=== PATIENT | female | born 1930 | race African-American/Black ===

== ENCOUNTER 2016-12-29 11:13 | Inpatient (IN) ==
[~2016-12-29 11:13] MED LIST: ACETAMINOPHEN 325 MG TABLET PO PRN; ALBUTEROL/IPRATROPIUM 3 ML NEB RESP TX PRN
--- NOTE | 2016-12-29 11:57 | Pulmonology History & Physical ---
History of Present Illness Chief complaint: left lower lung pneumonia, outpt tx failure, hypoxemia History of present illness: LARISA Morgan, acting as scribe for Dr. Santana Rodas. Mrs. Garcia is an 86 year old female from [place], [place]. She was seen by me in the clinic today 12/29/16 for complaints of cough, wheeze, sore throat, severe shortness of breath with exertion, and frequent chills/ sweating that has been acutely worse for about 7-10 days. She was previously treated with Prednisone and Ceftin for upper respiratory infection and sinusitis with instructions to RTC if no improvement. She has completed these medications and her symptoms have not improved, but have become acutely worse so she presented back to the clinic today for further evaluation. On exam she was found to have a temperature of 99.2 oral along with o2 sat down to 84% with exertion. She has been using medications as prescribed including Symbicort and Incruse inhalers, breathing treatments, finishing prednisone, and Singulair. She was very anxious and tearful in the office today and acutely ill appearing. CXR was done which revealed findings of an acute left lower lobe infiltrate compatible with pneumonia. CBC showed anemia along with a left shift. Due to the severity of her symptoms and findings on CXR and lab, failure of outpatient treatment, and her past medical history decision was made to admit to inpatient for further evaluation and treatment. She report increased shortness of breath with a productive cough of discolored sputum, wheezing, dyspnea on exertion, chills, and fatigue. She denies any cardiac angina or palpitations. There is no reported dysphagia or reflux. No bleeding from any site. No TIA symptoms or syncope. No change in bowel or bladder habits. All other systems were reviewed and were negative. Allergies: NO KNOWN DRUG ALLERGIES Medications: See list. She takes a yearly flu shot. Pneumovax was given in 2008. Past medical history: [facility] hospitalization 10/11/15-06/05/16 under the care of Dr. Rodas for acute bronchitis with bronchospasm refractory to outpatient treatment and acute bibasilar pneumonia. [facility] hospitalization 05/2015 under the care of Dr. Rodas for an acute LLL infiltrate compatible with pnneumonia. COPD. Asthma. Trace of mitral regurgitation. DJD. High blood pressure. Diverticulosis. GERD. Hx of bilateral knee effusions secondary to DJD. Chronic lower extremity venous stasis. Chronic allergic sinusitis. Previous echocardiogram evidence of diastolic dysfunction. Hyperlipidemia. Social history: The patient denies alcohol and tobacco use. She is . She has a 6th grade education. 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 Family history: Positive for asthma. Past procedures: Bone density study done 03/04/06 were normal. Pulmonary function tests 04/16/11 showed (1) normal pulse oximetry 98%, (2) mild obstructive lung disease, (3) hyperinflation with a functional residual capacity of 173%of predicted and residual volume of 179% of predicted, (4) no restrictive disease, (5) no diffusion defect, (6) moderate decrease in MVV, and (7) these pulmonary function tests were were the best tests the patient had had since 10/06/06. CBC/BMP done in the clinic have been reviewed. WBC 9800 with an early left shift 71.6% segs, H&H 10.6/33.0 with a low MCH at 27.7 and a normal RDW of 14.6% , Platelets 274,000. Glucose 114. BUN/Creatinine 14/0.93 Calcium 8.3 Sodium 139 Potassium 3.5. CXR done in the clinic reviewed by Dr. Rodas. Noted to have an acute left lower lung infiltrate compatible with pneumonia. EKG is pending. Home Medications Medication Instructions Recorded Confirmed Type Aspirin EC Tab 81 mg PO DAILY 05/24/15 12/29/16 History Bimatoprost 0.01% Oph Soln 1 drop BOTH EYES BEDTIME 05/24/15 12/29/16 History [Lumigan] Budesonide/Formoterol 80-4.5 2 puff INH BID 05/24/15 12/29/16 History [Symbicort 80-4.5] Furosemide Tab [Lasix Tab] 40 mg PO DAILY 05/24/15 12/29/16 History Omeprazole [Prilosec] 40 mg PO DAILY 05/24/15 12/29/16 History Potassium Chloride Cap/Tab [K Dur] 20 meq PO DAILY 05/24/15 12/29/16 History hydrALAZINE TAB [Apresoline Tab] 25 mg PO BID 05/24/15 12/29/16 History Benzonatate [Tessalon] 200 mg PO TID PRN #60 capsule 05/31/15 12/29/16 Rx Cholecalciferol (Vitamin D3) 5,000 units PO DAILY 05/26/16 12/29/16 History [Vitamin D3] Montelukast Tab [Singulair Tab] 10 mg PO DAILY 05/26/16 12/29/16 History predniSONE TAB [PredniSONE] 10 mg PO BID 05/26/16 12/29/16 History Azelastine Nasal 137 Mcg/Denniston 2 sprays BOTH NARES BID 12/29/16 12/29/16 History [Astelin Nasal Denniston] Umeclidinium Vernon [Incruse 2 puff INH BID 12/29/16 12/29/16 History Ellipta] Allergies Allergy/AdvReac Type Severity Reaction Status Date / Time No Known Allergies Allergy Verified 05/24/15 13:06 Medical,Surgical,& Family Hx - Medical History Cardio: History of: Hypertension Respiratory: History of: Asthma, COPD Gastrointestinal: History of: GERD Musculoskeletal: History of: Degenerative Disk Disease - Social History Smoking Status: Never smoker Quality Measures - Stroke Symptom Onset Unknown: No Exam (Pulmonay) H&P - Constitutional Vitals: Ht. 65in Wt. 197lbs Temp 99.2 HR 83 RR 18 BP 137/93 O2 sat 94% on room air resting Exam: Psychiatric: Awake alert and oriented x 3, a pleasant patient who is acutely ill -appearing, but anxious and tearful. HEENT: Pupils, irises, sclera, conjunctiva and eyelids are normal. Face is symmetrical. Nares reveal edematous and erythematous turbinates bilaterally. Lips, tongue, buccal mucosa, soft and hard palate and pharynx are normal. External ears are normal. Neck is symmetrical without masses. The thyroid was not palpated. Lymphatics: No submandibular, cervical, or supraclavicular adenopathy Chest: Symmetrical with significant LAW wheeze with bibasilar congestion noted worse in the left basilar area. I do not hear any high pitched end expiratory wheezing. Cough during deep breathing noted. Cardiovascular: Regular with a slightly lateral PMI and a grade 1/6 FARA at the left sternal border that does not radiate. Arterial: Carotids are decreased. There was no bruit. Upper extremity pulses are palpable. Lower extremity pulses are nonpalpable. I see no evidence of ischemia. Venous: Venous exam of the neck and upper extremities is normal. Lower extremities reveal chronic venous stasis changes with 1-2+ pretibial edema. Breasts: Deferred Abdomen: Nontender and nondistended. No appreciable organomegaly, masses, tenderness, or bruit. The aorta was not palpated. Bowel sounds are positive 4. /Rectal: Deferred Skin: No cancers or infectious lesions of the exposed examined skin. The perineal area was not examined. No discoloration. Musculoskeletal: Mild loss of the normal curvature of the cervical, thoracic, and lumbar spine. Extremities: Trace bilateral pedal and pretibial edema.See VENOUS. There is no evidence of deep venous thrombophlebitis noted. Neurological: Cranial nerves appear to be intact with decreased hearing acuity bilaterally. Long tract motor function is intact. Gait was not tested. Sensory exam was not done. The remainder of the exam is noncontributory. Impression: #1: Acute left lower lung infiltrate compatible with pneumonia; sputum cultures and blood cultures are pending. 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 Plan: #1: Admit to inpatient for further evaluation and treatment #2: Start IV antiobiotics with Levaquin 500mg daily and Fortaz 1GM [id number] along with SoluMedrol 20mg IVP [id number]. #3: Check sputum for gram stain, culture and sensitivity along with blood cultures x3 before first dose of abx. #4: Check cold agglutinins and legionella #5: Inhalation therapy with Duonebs #6: Repeat labs and CXR in the morning #7: Consult Interventional Radiology for PICC line placement due to poor peripheral access. #8 ID and continue home medications. #9 See orders.
[2016-12-29] MEDS: methylPREDNISolone SOD SUC 40 MG/1 ML VIAL IV SCH (12:53)
--- NOTE | 2016-12-29 12:53 | EKG Report ---
Stationary ECG Study [facility] Test Date: 12/29/2016 12:52:43 PM Pat Name: FRIEDA GARCES Department: Room: 530 Gender: F Reinforcing Rod Layer: : 1930 Requested by: Kei Moreno Order Number: [id number] Reading MD: LEOPOLDO MORILLO Intervals [place] Rate: 85 P: 68 AL: 139 QRS: -56 QRSD: 134 T: 86 QT: 398 QTc: 440 Interpretive Statements (JOHNNIE RIVERA TO INTERP) SINUS RHYTHM WITH OCCASIONAL VENTRICULAR PREMATURE COMPLEXES RIGHT BUNDLE BRANCH BLOCK LEFT ANTERIOR FASCICULAR BLOCK LEFT VENTRICULAR HYPERTROPHY AND ST-T CHANGE Electronically Signed On 12-29-16 13:59:52 CDT by LEOPOLDO MORILLO [email or web address]
[2016-12-29 13:09] LABS: Magnesium 2.4 MG/DL (1.8-2.4); Thyroid Stimulating Hormone 0.611 uIU/ml (0.358-3.74)
[2016-12-29] MEDS: LEVOFLOXACIN INJ 500 MG in PREMIX 1 EACH IV SCH (14:05)
[2016-12-29] MEDS: ALBUTEROL/IPRATROPIUM 3 ML NEB RESP TX SCH ×2 (14:31→19:43)
--- NOTE | 2016-12-29 15:04 | Post Interventional Procedure ---
Pre-op diagnosis: Pneumonia Post-op diagnosis: same Procedure: PICC LUE Contrast: Omni-350, 5 cc Flouroscopy: 0.7 min Radiologist: Elton Perez Anesthesia: local Specimens: none sent Estimated blood loss: none Complications: none Condition: stable Assessment and Plan - Time spent with patient Time spent with patient: Less than 30 minutes
--- NOTE | 2016-12-29 15:15 | Interventional Radiology Rpt ---
IR PICC line insertion, US guide vascular access Indication: Pneumonia. PICC LINE, LEFT AXILLARY VENOGRAM Description: A formal timeout was performed. Maximum sterile barrier technique was used. Sonographic evaluation of the left upper extremity demonstrates patent and compressible basilar vein. The upper arm was prepped and draped in sterile fashion. 3 cc 1% lidocaine was administered subcutaneously. Under sonographic guidance, a micropuncture needle was advanced into the vein. A captured sonographic image documents the position of the needle. Needle was exchanged over a wire for a peel-away sheath. The wire would not pass further central of the axillary vein. Therefore, a venogram was performed of Omnipaque 350, 5 cc. This showed that the wire was preferentially tracking into 1 mm collateral vein. Under fluoroscopic guidance, the wire was then steered into the proper axillary vein until the tip of the wire was the RA-SVC junction. A dual lumen power PICC, cut to 44 cm, was advanced over the wire until the tip was at the RA-SVC junction. The position of the catheter was confirmed with fluoroscopic guidance and an image stored in PACS. The wire and sheath were removed. Both ports of the PICC were aspirated and flushed with heparinized saline. The device was secured with a StatLock. Fluoroscopy: 0.7 minutes. 3 captured images. Contrast: Omnipaque 350, 5 cc. Impression: PICC line ready for immediate use. Routine catheter care. PROCEDURE INTERPRETED AT [facility] DEPARTMENT OF RADIOLOGY Final Report Signed by: Elton Perez M.D.
[2016-12-29] MEDS: BENZONATATE 100 MG CAPSULE PO SCH ×2 (16:09→21:28)
[2016-12-29 20:33] LABS: Apearance,Urine CLEAR (Clear); Bilirubin,Urine Negative (Negative); Blood, Urine Negative (Negative); Glucose,Urine (UA) Negative (Negative); Ketones,Urine Negative (Negative); Mucus,Urine Occasional /LPF (Occasional); Nitrite,Urine Negative (Negative); Protein,Urine Negative; RBC,Urine 1 /HPF (0-4); Squamous Epithelial Cell,Urine Occasional /HPF (0-10); Transitional Epi Cells,Urine Occasional /HPF (<1); Urine Color Yellow (Yellow); Urine Specific Gravity 1.013 (1.001-1.035); Urine Urobilinogen < 2.0 EU/DL (0.2-1.0); WBC,Urine 5 /HPF (0-6)
[2016-12-29] MEDS: BUDESONIDE/FORMOTEROL 160-4.5 INHALER 6 GM INH SCH (21:26)
[2016-12-29] MEDS: AZELASTINE NASAL 137 MCG/SPRAY 30 ML BOTTLE BOTH NARES SCH (21:26)
[2016-12-29] MEDS: BIMATOPROST 0.01% OPH SOLN 2.5 ML BOTTLE BOTH EYES SCH (21:27)
[2016-12-29] MEDS: hydrALAZINE 25 MG TABLET PO SCH (21:28)
[2016-12-29] MEDS: MONTELUKAST 10 MG TABLET PO SCH (21:28)
[2016-12-29] MEDS: INCRUSE ELLIPTA INH SCH (21:29)
[2016-12-30] MEDS: methylPREDNISolone SOD SUC 40 MG/1 ML VIAL IV SCH ×2 (00:58→13:02)
[2016-12-30] MEDS: ALBUTEROL/IPRATROPIUM 3 ML NEB RESP TX SCH ×4 (07:00→19:36)
[2016-12-30 07:20] LABS: Basophils % 0.1 % (0.0-0.8); Hematocrit 31.5 VOL% (35.7-47.0); Hemoglobin 10.3 GM/DL (12.0-16.0); Immature Granulocytes % 0.6 %; Immature Granulocytes Absolute 0.04 #; Lymphocytes # 1.3 10*3/uL (1.4-4.0); Lymphocytes % 17.9 % (21.3-54.2); Mean Corpuscular HGB Conc 32.7 GM/DL (32-36); Mean Corpuscular Hemoglobin 28 PG (27-34); Mean Corpuscular Volume 85.4 FL (87-102); Mean Platelet Volume 11.2 FL (9.6-12.0); Monocytes # 0.3 10*3/uL (0.11-0.8); Monocytes % 3.6 % (1.7-12.7); Neutrophils # 5.6 10*3/uL (1.4-7.4); Neutrophils % 77.8 % (38.7-73.9); Platelet Count 277 T/CUMM (130-400); Red Blood Count 3.69 MC/CUMM (3.8-5.5); Red Cell Distribution Width 14.6 % (9.3-17.3); White Blood Count 7.1 T/CUMM (4-12)
[2016-12-30 07:42] LABS: Calcium 8.2 MG/DL (8.5-10.1); Potassium 4.3 MMOL/L (3.5-5.1)
[2016-12-30 07:45] LABS: Hypochromasia Slight; Lymphocytes 15 % (20-55); Platelet Estimate Adequate; Segmented Neutrophils 81 % (50-85); Total Cells Counted 100
--- NOTE | 2016-12-30 08:01 | XRay Report ---
Exam: XR chest 2V Indication: Shortness of breath Comparison study: Prior chest radiograph 06/05/2016 Findings: Left-sided PICC line is noted in position. The heart, mediastinum and bony structures are stable from prior. There are patchy airspace opacities within the lung bases, more prominent on the left which are similar to slightly increased from prior and therefore may represent areas of interstitial scarring and/or superimposed interstitial infiltrates. There is no pneumothorax or pleural effusion identified. Impression: Similar areas of airspace and interstitial opacities in the left lung base and medial right lung base which may represent atelectasis/scarring and/or superimposed interstitial infiltrates. PROCEDURE INTERPRETED AT [facility] DEPARTMENT OF RADIOLOGY Final Report Signed by: Faizan Gonzalez
[2016-12-30] MEDS: MONTELUKAST 10 MG TABLET PO SCH ×2 (09:50→21:58)
[2016-12-30] MEDS: POTASSIUM CHLORIDE 20 MEQ TABLET PO SCH (09:50)
[2016-12-30] MEDS: FUROSEMIDE 40 MG TABLET PO SCH (09:50)
[2016-12-30] MEDS: CHOLECALCIFEROL 1,000 UNIT TABLET PO SCH (09:50)
[2016-12-30] MEDS: ASPIRIN CHEW 81 MG TABLET PO SCH (09:50)
[2016-12-30] MEDS: BENZONATATE 100 MG CAPSULE PO SCH ×3 (09:50→21:58)
[2016-12-30] MEDS: hydrALAZINE 25 MG TABLET PO SCH ×2 (09:50→21:58)
[2016-12-30] MEDS: PANTOPRAZOLE 40 MG TABLET PO SCH (09:50)
[2016-12-30] MEDS: AZELASTINE NASAL 137 MCG/SPRAY 30 ML BOTTLE BOTH NARES SCH ×2 (09:51→21:57)
[2016-12-30] MEDS: BUDESONIDE/FORMOTEROL 160-4.5 INHALER 6 GM INH SCH ×2 (09:51→21:57)
[2016-12-30] MEDS: INCRUSE ELLIPTA INH SCH ×2 (10:12→21:58)
--- NOTE | 2016-12-30 10:54 | Pulmonology Progress Note ---
Pulmonary - PN: Subj Interval history: This is a 86-year-old black female admitted from my office on 12/29/2016. She was admitted with acute left lower lung pneumonia. She was significantly sick and she had significant dyspnea on exertion. She had a cough productive of discolored sputum. My impressions were. #1: Acute left lower lung infiltrate compatible with pneumonia; sputum cultures and blood cultures are pending. 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 12/30/2016. Today the patient feels better her chest x-ray shows some partial resolution of the left lower lung infiltrate. She is still breathless with getting up and going to the bathroom. White blood cell count is 7100 with 78 segs and 18 lymphs. H&H is 10.3/31.5 and platelets are 277,000. Urinalysis shows no evidence of infection. Electrolytes are normal. Creatinine is 0.70 with a BUN of 13. Thyroid function tests are normal. Nitrated peptide is 25. Magnesium is 2.4. Sputum Gram stain showed gram-positive cocci and gram- negative rods. Blood cultures are negative so far Physical exam. Vital signs. See below Psychiatric. Oriented 3 Neurologic. Cranial nerves are intact with some decreased hearing acuity bilaterally long track motor functions intact. Gait is slow but steady. Face. Symmetrical. No edema of the lips and tongue. Neck. Symmetrical. No meningismus. Lymphatics. No submandibular cervical supraclavicular or epitrochlear adenopathy. Chest. Large airway congestion especially on the left no chest wall tenderness. Heart. No gallop Abdomen obese. Nontender. Positive bowel sounds Lower extremities. Nothing to suggest deep venous thrombophlebitis. Venous. Neck and upper extremities are normal chronic venous stasis changes of the lower extremities. Arterial. Carotids are decreased and hard to palpate. Upper extremity pulses are palpable lower extremity pulses are nonpalpable. No evidence of lower extremity ischemia. The remainder the physical exam is negative. Plan: 12/29/2016 #1: Admit to inpatient for further evaluation and treatment #2: Start IV antiobiotics with Levaquin 500mg daily and Fortaz 1GM [id number] along with SoluMedrol 20mg IVP [id number]. #3: Check sputum for gram stain, culture and sensitivity along with blood cultures x3 before first dose of abx. #4: Check cold agglutinins and legionella #5: Inhalation therapy with Duonebs #6: Repeat labs and CXR in the morning #7: Consult Interventional Radiology for PICC line placement due to poor peripheral access. #8 ID and continue home medications. #9 See orders. 12/30/2016. 1. See today's note above 2. Continue problem spectrum antibiotic coverage. This was in outpatient treatment failure. Exam (Progress Note) - Constitutional Vitals: Period Temp Pulse Resp BP Sys/Gonzales Pulse Ox Last 24 Hr 97.2 F-99.6 F 56-87 16-20 116-142/55-93 94-100 Results - Labs CBC & BMP: 12/30/16 06:35 12/30/16 06:35
[2016-12-30] MEDS: LEVOFLOXACIN INJ 500 MG in PREMIX 1 EACH IV SCH (13:03)
[2016-12-30] MEDS: BIMATOPROST 0.01% OPH SOLN 2.5 ML BOTTLE BOTH EYES SCH (21:58)
[2016-12-31] MEDS: methylPREDNISolone SOD SUC 40 MG/1 ML VIAL IV SCH ×3 (00:30→23:35)
[2016-12-31 06:10] LABS: Basophils % 0.1 % (0.0-0.8); Eosinophils % 0.1 % (0.00-10.9); Hematocrit 31.9 VOL% (35.7-47.0); Hemoglobin 10.2 GM/DL (12.0-16.0); Immature Granulocytes % 0.6 %; Immature Granulocytes Absolute 0.06 #; Lymphocytes # 1.5 10*3/uL (1.4-4.0); Lymphocytes % 14.3 % (21.3-54.2); Mean Corpuscular Hemoglobin 27 PG (27-34); Mean Corpuscular Volume 85.5 FL (87-102); Mean Platelet Volume 11.1 FL (9.6-12.0); Monocytes # 0.5 10*3/uL (0.11-0.8); Monocytes % 4.7 % (1.7-12.7); Neutrophils # 8.4 10*3/uL (1.4-7.4); Neutrophils % 80.2 % (38.7-73.9); Platelet Count 325 T/CUMM (130-400); Red Blood Count 3.73 MC/CUMM (3.8-5.5); Red Cell Distribution Width 14.6 % (9.3-17.3); White Blood Count 10.5 T/CUMM (4-12)
[2016-12-31 06:31] LABS: Hypochromasia 1+
[2016-12-31 06:32] LABS: Microcytosis Slight; Platelet Estimate Normal
[2016-12-31 06:34] LABS: Calcium 8.7 MG/DL (8.5-10.1); Osmolality,Calculated 285.3 MOS/KG (273-304); Potassium 4.6 MMOL/L (3.5-5.1)
[2016-12-31] MEDS: ALBUTEROL/IPRATROPIUM 3 ML NEB RESP TX SCH ×4 (07:25→19:27)
--- NOTE | 2016-12-31 08:00 | XRay Report ---
Exam: XR chest 2V Date: 12/31/2016 4:00 AM Indication: Shortness of breath Comparison: 12/30/2016 Technical: PA lateral Findings: A left-sided PICC line is present. Cardiomegaly is present. Bibasilar infiltrates are present left greater than right involving the lower one fourth of the left chest with tiny effusion suspected bilaterally. Minimal sclerosis at the shoulders bilaterally. No pneumothorax. Impression: 1. Cardiomegaly 2. Bilateral basilar interstitial infiltrates and tiny effusions left greater than right unchanged from prior study 3. Stable appearance of PICC line 4. Arthritic change of the shoulders bilaterally PROCEDURE INTERPRETED AT [facility] DEPARTMENT OF RADIOLOGY Final Report Signed by: Dr. Santana Ribera
[2016-12-31] MEDS: CHOLECALCIFEROL 1,000 UNIT TABLET PO SCH (08:23)
[2016-12-31] MEDS: AZELASTINE NASAL 137 MCG/SPRAY 30 ML BOTTLE BOTH NARES SCH ×2 (08:24→20:52)
[2016-12-31] MEDS: ASPIRIN CHEW 81 MG TABLET PO SCH (08:24)
[2016-12-31] MEDS: INCRUSE ELLIPTA INH SCH ×2 (08:24→21:01)
[2016-12-31] MEDS: MONTELUKAST 10 MG TABLET PO SCH ×2 (08:24→20:50)
[2016-12-31] MEDS: POTASSIUM CHLORIDE 20 MEQ TABLET PO SCH (08:24)
[2016-12-31] MEDS: BENZONATATE 100 MG CAPSULE PO SCH ×3 (08:24→20:50)
[2016-12-31] MEDS: hydrALAZINE 25 MG TABLET PO SCH ×2 (08:24→20:50)
[2016-12-31] MEDS: FUROSEMIDE 40 MG TABLET PO SCH (08:24)
[2016-12-31] MEDS: BUDESONIDE/FORMOTEROL 160-4.5 INHALER 6 GM INH SCH ×2 (08:24→20:52)
[2016-12-31] MEDS: PANTOPRAZOLE 40 MG TABLET PO SCH (08:24)
--- NOTE | 2016-12-31 11:01 | Pulmonology Progress Note ---
Pulmonary - PN: Subj Interval history: Bradley Calabrese, [facility] acting as scribe for Dr. Santana Rodas This is a 86-year-old black female admitted from [facility] on 03/2017. She was admitted with acute left lower lung pneumonia. She was significantly sick and she had significant dyspnea on exertion. She had a cough productive of discolored sputum. At admission, our impressions were: #1: Acute left lower lung infiltrate compatible with pneumonia; sputum cultures and blood cultures are pending. 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 12/30/2016. Today the patient feels better her chest x-ray shows some partial resolution of the left lower lung infiltrate. She is still breathless with getting up and going to the bathroom. White blood cell count is 7100 with 78 segs and 18 lymphs. H&H is 10.3/31.5 and platelets are 277,000. Urinalysis shows no evidence of infection. Electrolytes are normal. Creatinine is 0.70 with a BUN of 13. Thyroid function tests are normal. Nitrated peptide is 25. Magnesium is 2.4. Sputum Gram stain showed gram-positive cocci and gram- negative rods. Blood cultures are negative so far 12/31/2016. The patient was sitting up in her bedside chair this morning. She continues to have significant cough with a little sputum production. On chest exam she has loose large airway congestion. We will start Pulmozyme twice daily. She is already on Mucinex, Singulair, and Solu-Medrol. She has Tessalon also. Cold agglutinins are positive at 1:128. We have started Zithromax. She is also on Levaquin and Fortaz. Sputum Gram stain showed gram- positive cocci and gram-negative rods. Sputum culture is growing a gram- negative natan, but final ID and sensitivity is pending. Chest x-ray today shows the previously noted infiltrate is improving. Medications have been reviewed. Zithromax was added today as well as Pulmozyme. Labs been reviewed. White count is 10,500 with 80.2% segs; H&H 10.2/31.9; platelet count 325,000; creatinine 0.90, BUN 17, electrolytes are normal Microbiology has been reviewed. Blood cultures are negative at day 1. Urine culture is negative. Sputum cultures growing a gram-negative natan. Exam (Progress Note) - Constitutional Vitals: Period Temp Pulse Resp BP Sys/Ognzales Pulse Ox Last 24 Hr 96.9 F-98.4 F 59-104 16-20 113-149/50-80 95-99 Exam: Chest with loose large airway congestion Heart no gallop Abdomen is obese, but nontender and nondistended; bowel sounds are positive 4 Lower extremities nothing to suggest acute deep venous thrombophlebitis Psychiatric oriented 3 Neurologic long-term motor function is intact Plan: Zithromax 500 mg IV piggyback daily. Pulmozyme twice daily. Continue present treatment. Follow-up sputum culture when available. See orders. Results - Labs CBC & BMP: 12/31/16 04:53 12/31/16 04:53
[2016-12-31] MEDS: DORNASE ALFA 2.5 MG/2.5 ML VIAL RESP TX SCH ×2 (11:34→19:33)
[2016-12-31] MEDS: AZITHROMYCIN INJ 500 MG in SODIUM CHLORIDE 0.9% 250 ML IV SCH (12:12)
[2016-12-31] MEDS: LEVOFLOXACIN INJ 500 MG in PREMIX 1 EACH IV SCH (14:39)
[2016-12-31] MEDS: BIMATOPROST 0.01% OPH SOLN 2.5 ML BOTTLE BOTH EYES SCH (20:52)
[2017-01-01 07:16] LABS: Basophils % 0.1 % (0.0-0.8); Eosinophils % 0.1 % (0.00-10.9); Hematocrit 31.5 VOL% (35.7-47.0); Immature Granulocytes % 0.6 %; Immature Granulocytes Absolute 0.06 #; Lymphocytes # 1.6 10*3/uL (1.4-4.0); Lymphocytes % 15.7 % (21.3-54.2); Mean Corpuscular HGB Conc 31.7 GM/DL (32-36); Mean Corpuscular Hemoglobin 27 PG (27-34); Mean Corpuscular Volume 86.3 FL (87-102); Mean Platelet Volume 11.3 FL (9.6-12.0); Monocytes # 0.5 10*3/uL (0.11-0.8); Neutrophils # 7.8 10*3/uL (1.4-7.4); Neutrophils % 78.5 % (38.7-73.9); Platelet Count 344 T/CUMM (130-400); Red Blood Count 3.65 MC/CUMM (3.8-5.5); Red Cell Distribution Width 14.6 % (9.3-17.3); White Blood Count 9.9 T/CUMM (4-12)
[2017-01-01 07:50] LABS: Calcium 8.6 MG/DL (8.5-10.1); Osmolality,Calculated 279.5 MOS/KG (273-304); Potassium 4.5 MMOL/L (3.5-5.1)
[2017-01-01] MEDS: ALBUTEROL/IPRATROPIUM 3 ML NEB RESP TX SCH ×4 (08:03→19:14)
[2017-01-01] MEDS: DORNASE ALFA 2.5 MG/2.5 ML VIAL RESP TX SCH ×2 (08:04→19:21)
--- NOTE | 2017-01-01 08:45 | XRay Report ---
Exam: XR chest 2V Date: 01/01/2017 4:00 AM Indication: Shortness of breath Comparison: 12/31/2016 Technical: PA lateral Findings: A left-sided subclavian catheter is present. Cardiomegaly is present. By basilar atelectatic change infiltrates and effusions left greater than right. Arthritic change present over the shoulders right greater than left. Minimal thickening of the minor fissure. No pneumothorax. Impression: 1. Cardiomegaly 2. Bilateral basilar infiltrates left greater than right 2. Stable PICC line PROCEDURE INTERPRETED AT [facility] DEPARTMENT OF RADIOLOGY Final Report Signed by: Dr. Santana Ribera
[2017-01-01] MEDS: PANTOPRAZOLE 40 MG TABLET PO SCH (10:04)
[2017-01-01] MEDS: ASPIRIN CHEW 81 MG TABLET PO SCH (10:04)
[2017-01-01] MEDS: BENZONATATE 100 MG CAPSULE PO SCH ×3 (10:04→20:31)
[2017-01-01] MEDS: CHOLECALCIFEROL 1,000 UNIT TABLET PO SCH (10:04)
[2017-01-01] MEDS: MONTELUKAST 10 MG TABLET PO SCH ×2 (10:05→21:02)
[2017-01-01] MEDS: FUROSEMIDE 40 MG TABLET PO SCH (10:05)
[2017-01-01] MEDS: hydrALAZINE 25 MG TABLET PO SCH ×2 (10:05→20:31)
[2017-01-01] MEDS: POTASSIUM CHLORIDE 20 MEQ TABLET PO SCH (10:05)
[2017-01-01] MEDS: INCRUSE ELLIPTA INH SCH ×2 (10:06→21:02)
[2017-01-01] MEDS: BUDESONIDE/FORMOTEROL 160-4.5 INHALER 6 GM INH SCH ×2 (10:08→20:31)
[2017-01-01] MEDS: AZELASTINE NASAL 137 MCG/SPRAY 30 ML BOTTLE BOTH NARES SCH ×2 (10:09→20:31)
[2017-01-01] MEDS: AZITHROMYCIN INJ 500 MG in SODIUM CHLORIDE 0.9% 250 ML IV SCH (10:09)
--- NOTE | 2017-01-01 11:19 | Pulmonology Progress Note ---
Pulmonary - PN: Subj Interval history: Bradley Calabrese, [facility] acting as scribe for Dr. Santana Rodas This is a 86-year-old black female admitted from [facility] Clinic on 03/2017. She was admitted with acute left lower lung pneumonia. She was significantly sick and she had significant dyspnea on exertion. She had a cough productive of discolored sputum. At admission, our impressions were: #1: Acute left lower lung infiltrate compatible with pneumonia; sputum cultures and blood cultures are pending. 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 12/30/2016. Today the patient feels better her chest x-ray shows some partial resolution of the left lower lung infiltrate. She is still breathless with getting up and going to the bathroom. White blood cell count is 7100 with 78 segs and 18 lymphs. H&H is 10.3/31.5 and platelets are 277,000. Urinalysis shows no evidence of infection. Electrolytes are normal. Creatinine is 0.70 with a BUN of 13. Thyroid function tests are normal. Nitrated peptide is 25. Magnesium is 2.4. Sputum Gram stain showed gram-positive cocci and gram- negative rods. Blood cultures are negative so far 12/31/2016. The patient was sitting up in her bedside chair this morning. She continues to have significant cough with a little sputum production. On chest exam she has loose large airway congestion. We will start Pulmozyme twice daily. She is already on Mucinex, Singulair, and Solu-Medrol. She has Tessalon also. Cold agglutinins are positive at 1:128. We have started Zithromax. She is also on Levaquin and Fortaz. Sputum Gram stain showed gram- positive cocci and gram-negative rods. Sputum culture is growing a gram- negative natan, but final ID and sensitivity is pending. Chest x-ray today shows the previously noted infiltrate is improving. 01/01/2017. Patient was seen today along with Baljeet Garcia RN. Sputum culture has now been finalized. Sputum grew E. coli. She is on Levaquin and Fortaz which both have excellent sensitivities to this organism. She is also on Zithromax secondary to positive cold agglutinins. Overall, the patient states that her breathing is improved. She continues to have a productive cough, but states sputum is white. She has remained afebrile. Legionella is negative. Chest x-ray stable. Medications have been reviewed. We made no changes today. Labs been reviewed. White count is 9900 with 78.5% segs; H&H 10.0/31.5; platelet count 344,000; creatinine 0.0, BUN 16, electrolytes are normal Microbiology has been reviewed. Blood cultures are negative at day 1. Urine culture is negative. Sputum cultures grew E. coli. Exam (Progress Note) - Constitutional Vitals: Period Temp Pulse Resp BP Sys/Gonzales Pulse Ox Last 24 Hr 96.9 F-98.1 F 61-91 18-20 112-144/52-90 95-99 Exam: Chest with loose large airway congestion Heart no gallop Abdomen is obese, but nontender and nondistended; bowel sounds are positive 4 Lower extremities nothing to suggest acute deep venous thrombophlebitis Psychiatric oriented 3 Neurologic long-term motor function is intact Plan: Continue present treatment. Repeat chest x-ray in the morning. Patient continues to improve, she could be ready for discharge as early as tomorrow. Results - Labs CBC & BMP: 01/01/17 05:29 01/01/17 05:29
[2017-01-01] MEDS: methylPREDNISolone SOD SUC 40 MG/1 ML VIAL IV SCH ×2 (13:12→23:45)
[2017-01-01] MEDS: LEVOFLOXACIN INJ 500 MG in PREMIX 1 EACH IV SCH (14:21)
[2017-01-01] MEDS: BIMATOPROST 0.01% OPH SOLN 2.5 ML BOTTLE BOTH EYES SCH (20:31)
[2017-01-02] MEDS: ALBUTEROL/IPRATROPIUM 3 ML NEB RESP TX SCH ×4 (07:32→19:43)
--- NOTE | 2017-01-02 08:24 | XRay Report ---
Exam: XR chest 2V Date: 01/02/2017 4:00 AM Indication: Cough shortness of breath COPD pneumonia Comparison: 01/01/2017 Technical: PA lateral Findings: Left-sided PICC line is present. Bibasilar interstitial infiltrates and effusions atelectatic changes are present with cardiac enlargement. Arthritic change present over the shoulders right greater than left. No pneumothorax. Mediastinum is otherwise intact. Impression: 1. No significant change in the left basilar pneumonic infiltrate with slight increasing atelectatic change infiltrate in the right base 2. Underlying cardiomegaly 3. Stable position of the PICC line PROCEDURE INTERPRETED AT [facility] DEPARTMENT OF RADIOLOGY Final Report Signed by: Dr. Santana Ribera
[2017-01-02] MEDS: POTASSIUM CHLORIDE 20 MEQ TABLET PO SCH (09:48)
[2017-01-02] MEDS: BENZONATATE 100 MG CAPSULE PO SCH ×3 (09:49→22:04)
[2017-01-02] MEDS: hydrALAZINE 25 MG TABLET PO SCH ×2 (09:49→21:55)
[2017-01-02] MEDS: FUROSEMIDE 40 MG TABLET PO SCH (09:49)
[2017-01-02] MEDS: CHOLECALCIFEROL 1,000 UNIT TABLET PO SCH (09:49)
[2017-01-02] MEDS: ASPIRIN CHEW 81 MG TABLET PO SCH (09:49)
[2017-01-02] MEDS: AZELASTINE NASAL 137 MCG/SPRAY 30 ML BOTTLE BOTH NARES SCH ×2 (09:50→21:56)
[2017-01-02] MEDS: MONTELUKAST 10 MG TABLET PO SCH ×2 (09:50→22:04)
[2017-01-02] MEDS: PANTOPRAZOLE 40 MG TABLET PO SCH (09:50)
[2017-01-02] MEDS: BUDESONIDE/FORMOTEROL 160-4.5 INHALER 6 GM INH SCH ×2 (09:50→21:58)
[2017-01-02] MEDS: INCRUSE ELLIPTA INH SCH ×2 (09:51→21:59)
[2017-01-02] MEDS: DORNASE ALFA 2.5 MG/2.5 ML VIAL RESP TX SCH ×2 (10:55→19:43)
--- NOTE | 2017-01-02 12:02 | Pulmonology Progress Note ---
Pulmonary - PN: Subj Interval history: Bradley Calabrese, [facility] acting as scribe for Dr. Santana Rodas This is a 86-year-old black female admitted from [facility] on 03[facility]. She was admitted with acute left lower lung pneumonia. She was significantly sick and she had significant dyspnea on exertion. She had a cough productive of discolored sputum. At admission, our impressions were: #1: Acute left lower lung infiltrate compatible with pneumonia; sputum cultures and blood cultures are pending. 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 12/30/2016. Today the patient feels better her chest x-ray shows some partial resolution of the left lower lung infiltrate. She is still breathless with getting up and going to the bathroom. White blood cell count is 7100 with 78 segs and 18 lymphs. H&H is 10.3/31.5 and platelets are 277,000. Urinalysis shows no evidence of infection. Electrolytes are normal. Creatinine is 0.70 with a BUN of 13. Thyroid function tests are normal. Nitrated peptide is 25. Magnesium is 2.4. Sputum Gram stain showed gram-positive cocci and gram- negative rods. Blood cultures are negative so far 12/31/2016. The patient was sitting up in her bedside chair this morning. She continues to have significant cough with a little sputum production. On chest exam she has loose large airway congestion. We will start Pulmozyme twice daily. She is already on Mucinex, Singulair, and Solu-Medrol. She has Tessalon also. Cold agglutinins are positive at 1:128. We have started Zithromax. She is also on Levaquin and Fortaz. Sputum Gram stain showed gram- positive cocci and gram-negative rods. Sputum culture is growing a gram- negative natan, but final ID and sensitivity is pending. Chest x-ray today shows the previously noted infiltrate is improving. 01/01/2017. Patient was seen today along with Baljeet Garcia RN. Sputum culture has now been finalized. Sputum grew E. coli. She is on Levaquin and Fortaz which both have excellent sensitivities to this organism. She is also on Zithromax secondary to positive cold agglutinins. Overall, the patient states that her breathing is improved. She continues to have a productive cough, but states sputum is white. She has remained afebrile. Legionella is negative. Chest x-ray stable. 01/02/17. The patient was seen today along with Baljeet Garcia RN. Her CXR today shows a new RLL infiltrate. In light of this. we will continue her inpatient stay and IV antibiotics. She states she doesn't feel well, but is improving. Medications have been reviewed. We made no changes today. Labs been reviewed. Microbiology has been reviewed. Urine culture is negative. Sputum cultures grew E. coli. Exam (Progress Note) - Constitutional Vitals: Period Temp Pulse Resp BP Sys/Gonzales Pulse Ox Last 24 Hr 97.1 F-97.8 F 58-93 17-20 104-129/61-94 93-99 Exam: Chest with loose large airway congestion, mild wheeze Heart no gallop Abdomen is obese, but nontender and nondistended; bowel sounds are positive 4 Lower extremities nothing to suggest acute deep venous thrombophlebitis Psychiatric oriented 3 Neurologic long-term motor function is intact Plan: Continue present treatment. Repeat chest x-ray Thursday. Results - Labs CBC & BMP: 01/01/17 05:29 01/01/17 05:29
[2017-01-02] MEDS: methylPREDNISolone SOD SUC 40 MG/1 ML VIAL IV SCH ×2 (12:17→23:46)
[2017-01-02] MEDS: AZITHROMYCIN INJ 500 MG in SODIUM CHLORIDE 0.9% 250 ML IV SCH (12:18)
[2017-01-02] MEDS: LEVOFLOXACIN INJ 500 MG in PREMIX 1 EACH IV SCH (19:54)
[2017-01-02] MEDS: BIMATOPROST 0.01% OPH SOLN 2.5 ML BOTTLE BOTH EYES SCH (21:57)
[2017-01-03] MEDS: ALBUTEROL/IPRATROPIUM 3 ML NEB RESP TX SCH ×4 (07:05→20:40)
[2017-01-03] MEDS: DORNASE ALFA 2.5 MG/2.5 ML VIAL RESP TX SCH ×2 (07:10→20:40)
[2017-01-03] MEDS ORDERED: FUROSEMIDE 20 MG/2 ML VIAL IV ONE (08:44)
--- NOTE | 2017-01-03 08:44 | Pulmonology Progress Note ---
Pulmonary - PN: Subj Interval history: This 86-year-old lady is a patient that Dr. Rodas follows for pneumonia. She had a left lower lobe pneumonia. Chest x-ray yesterday showed an infiltrate at the right base. On my review there may be some subpulmonic fluid. She may be a little ahead on fluids. She is already on oral Lasix. We will give her 1 dose of IV Lasix. Her IV fluids have been discontinued. Exam (Progress Note) - Constitutional Vitals: Period Temp Pulse Resp BP Sys/Gonzales Pulse Ox Last 24 Hr 96.4 F-98.0 F 58-93 16-20 112-135/51-70 96-99 Exam: Patient is alert and afebrile. Pupils react to light. Throat is clear. Neck supple no bruits. Chest reveals some bibasilar crackles. Bilateral. Heart normal rate rhythm no murmurs. Abdomen soft nontender no masses. Extremities no clubbing cyanosis. Calves nontender. Trace of edema. Results - Labs CBC & BMP: 01/01/17 05:29 01/01/17 05:29 Lab Results: I have reviewed the past 24 hour labs Assessment and Plan (1) COPD (chronic obstructive pulmonary disease) Status: Acute Assessment and plan: Continuing bronchodilators Current Visit: No (2) Pneumonia Status: Acute Assessment and plan: Continuing antibiotics. Again she may be a little wet as well. Current Visit: No
[2017-01-03] MEDS: POTASSIUM CHLORIDE 20 MEQ TABLET PO SCH (09:46)
[2017-01-03] MEDS: CHOLECALCIFEROL 1,000 UNIT TABLET PO SCH (09:46)
[2017-01-03] MEDS: FUROSEMIDE 40 MG TABLET PO SCH (09:47)
[2017-01-03] MEDS: MONTELUKAST 10 MG TABLET PO SCH ×2 (09:47→20:59)
[2017-01-03] MEDS: hydrALAZINE 25 MG TABLET PO SCH ×2 (09:47→20:59)
[2017-01-03] MEDS: BENZONATATE 100 MG CAPSULE PO SCH ×3 (09:47→20:59)
[2017-01-03] MEDS: PANTOPRAZOLE 40 MG TABLET PO SCH (09:48)
[2017-01-03] MEDS: ASPIRIN CHEW 81 MG TABLET PO SCH (09:48)
[2017-01-03] MEDS: BUDESONIDE/FORMOTEROL 160-4.5 INHALER 6 GM INH SCH ×2 (09:49→21:00)
[2017-01-03] MEDS: AZELASTINE NASAL 137 MCG/SPRAY 30 ML BOTTLE BOTH NARES SCH ×2 (09:49→21:00)
[2017-01-03] MEDS: INCRUSE ELLIPTA INH SCH ×2 (10:50→22:31)
[2017-01-03] MEDS: AZITHROMYCIN INJ 500 MG in SODIUM CHLORIDE 0.9% 250 ML IV SCH (11:14)
[2017-01-03] MEDS: LEVOFLOXACIN INJ 500 MG in PREMIX 1 EACH IV SCH (11:30)
[2017-01-03] MEDS: methylPREDNISolone SOD SUC 40 MG/1 ML VIAL IV SCH (12:34)
[2017-01-03] MEDS: BIMATOPROST 0.01% OPH SOLN 2.5 ML BOTTLE BOTH EYES SCH (20:59)
[2017-01-04] MEDS: methylPREDNISolone SOD SUC 40 MG/1 ML VIAL IV SCH ×3 (00:43→23:21)
[2017-01-04] MEDS: ALBUTEROL/IPRATROPIUM 3 ML NEB RESP TX SCH ×4 (07:18→20:10)
[2017-01-04] MEDS: DORNASE ALFA 2.5 MG/2.5 ML VIAL RESP TX SCH ×2 (07:18→20:10)
[2017-01-04] MEDS: CHOLECALCIFEROL 1,000 UNIT TABLET PO SCH (08:47)
[2017-01-04] MEDS: POTASSIUM CHLORIDE 20 MEQ TABLET PO SCH (08:48)
[2017-01-04] MEDS: PANTOPRAZOLE 40 MG TABLET PO SCH (08:48)
[2017-01-04] MEDS: ASPIRIN CHEW 81 MG TABLET PO SCH (08:48)
[2017-01-04] MEDS: hydrALAZINE 25 MG TABLET PO SCH ×2 (08:48→21:02)
[2017-01-04] MEDS: BENZONATATE 100 MG CAPSULE PO SCH ×3 (08:48→21:03)
[2017-01-04] MEDS: MONTELUKAST 10 MG TABLET PO SCH ×2 (08:48→21:03)
[2017-01-04] MEDS: FUROSEMIDE 40 MG TABLET PO SCH (08:49)
[2017-01-04] MEDS: AZELASTINE NASAL 137 MCG/SPRAY 30 ML BOTTLE BOTH NARES SCH ×2 (08:49→21:03)
[2017-01-04] MEDS: BUDESONIDE/FORMOTEROL 160-4.5 INHALER 6 GM INH SCH ×2 (08:49→21:03)
[2017-01-04] MEDS: INCRUSE ELLIPTA INH SCH ×2 (08:51→21:16)
[2017-01-04] MEDS: AZITHROMYCIN INJ 500 MG in SODIUM CHLORIDE 0.9% 250 ML IV SCH (09:38)
--- NOTE | 2017-01-04 10:53 | Pulmonology Progress Note ---
Pulmonary - PN: Subj Interval history: This 86-year-old lady is a patient that Dr. Rodas follows for pneumonia. She had a left lower lobe pneumonia. Chest x-ray yesterday showed an infiltrate at the right base. On my review there may be some subpulmonic fluid. She may be a little ahead on fluids. She is already on oral Lasix. We will give her 1 dose of IV Lasix. Her IV fluids have been discontinued. 01/04/2017 sputum has shown E. coli. Covered by [facility]. No new complaints. Exam (Progress Note) - Constitutional Vitals: Period Temp Pulse Resp BP Sys/Gonzales Pulse Ox Last 24 Hr 97.1 F-98.3 F 57-82 16-20 110-161/54-70 94-99 Exam: Patient is alert and afebrile. Pupils react to light. Throat is clear. Neck supple no bruits. Chest reveals some bibasilar crackles. Bilateral. Heart normal rate rhythm no murmurs. Abdomen soft nontender no masses. Extremities no clubbing cyanosis. Calves nontender. Trace of edema. Little change from yesterday. Results - Labs CBC & BMP: 01/01/17 05:29 01/01/17 05:29 Lab Results: I have reviewed the past 24 hour labs Assessment and Plan (1) COPD (chronic obstructive pulmonary disease) Status: Acute Assessment and plan: Continuing bronchodilators 01/04/2017 continuing bronchodilators. No active wheezing. Current Visit: No (2) Pneumonia Status: Acute Assessment and plan: Continuing antibiotics. Again she may be a little wet as well. 01/04/2017 sputum has grown E. coli. Fortaz coverage. Current Visit: No
[2017-01-04] MEDS: LEVOFLOXACIN INJ 500 MG in PREMIX 1 EACH IV SCH (11:52)
[2017-01-04] MEDS: BIMATOPROST 0.01% OPH SOLN 2.5 ML BOTTLE BOTH EYES SCH (21:03)
[2017-01-05] MEDS: ALBUTEROL/IPRATROPIUM 3 ML NEB RESP TX SCH ×4 (07:39→20:19)
[2017-01-05] MEDS: DORNASE ALFA 2.5 MG/2.5 ML VIAL RESP TX SCH ×2 (07:39→20:23)
--- NOTE | 2017-01-05 08:36 | XRay Report ---
Chest, 2 views Comparison 01/02/2017 History is follow-up pneumonia The heart is enlarged. A hiatal hernia again seen There has been interval improvement with mild residual diffuse bilateral interstitial infiltrates versus edema with a mildly more focal patchy opacities in the left lung base. Prior more focal opacities in the right base have improved. Tiny effusions remain. Impression: Mild improvement with continued left greater than right infiltrates versus asymmetric edema superimposed on chronic changes. Continued follow-up is necessary PROCEDURE INTERPRETED AT [facility] DEPARTMENT OF RADIOLOGY Final Report Signed by: Dr. Violeta Ying
[2017-01-05] MEDS: MONTELUKAST 10 MG TABLET PO SCH ×2 (09:03→20:35)
[2017-01-05] MEDS: CHOLECALCIFEROL 1,000 UNIT TABLET PO SCH (09:03)
[2017-01-05] MEDS: hydrALAZINE 25 MG TABLET PO SCH ×2 (09:04→20:35)
[2017-01-05] MEDS: PANTOPRAZOLE 40 MG TABLET PO SCH (09:05)
[2017-01-05] MEDS: BENZONATATE 100 MG CAPSULE PO SCH ×3 (09:05→20:35)
[2017-01-05] MEDS: ASPIRIN CHEW 81 MG TABLET PO SCH (09:05)
[2017-01-05] MEDS: FUROSEMIDE 40 MG TABLET PO SCH (09:05)
[2017-01-05] MEDS: POTASSIUM CHLORIDE 20 MEQ TABLET PO SCH (09:06)
[2017-01-05] MEDS: AZELASTINE NASAL 137 MCG/SPRAY 30 ML BOTTLE BOTH NARES SCH ×2 (09:06→20:35)
[2017-01-05] MEDS: BUDESONIDE/FORMOTEROL 160-4.5 INHALER 6 GM INH SCH ×2 (09:07→20:35)
[2017-01-05] MEDS: INCRUSE ELLIPTA INH SCH ×2 (10:06→20:36)
[2017-01-05] MEDS: AZITHROMYCIN INJ 500 MG in SODIUM CHLORIDE 0.9% 250 ML IV SCH (10:07)
--- NOTE | 2017-01-05 10:39 | Pulmonology Progress Note ---
Pulmonary - PN: Subj Interval history: Bradley Calabrese, [facility] acting as scribe for Dr. Santana Rodas This is a 86-year-old black female admitted from [facility] on 03/2017. She was admitted with acute left lower lung pneumonia. She was significantly sick and she had significant dyspnea on exertion. She had a cough productive of discolored sputum. At admission, our impressions were: #1: Acute left lower lung infiltrate compatible with pneumonia; sputum cultures and blood cultures are pending. 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 12/30/2016. Today the patient feels better her chest x-ray shows some partial resolution of the left lower lung infiltrate. She is still breathless with getting up and going to the bathroom. White blood cell count is 7100 with 78 segs and 18 lymphs. H&H is 10.3/31.5 and platelets are 277,000. Urinalysis shows no evidence of infection. Electrolytes are normal. Creatinine is 0.70 with a BUN of 13. Thyroid function tests are normal. Nitrated peptide is 25. Magnesium is 2.4. Sputum Gram stain showed gram-positive cocci and gram- negative rods. Blood cultures are negative so far 12/31/2016. The patient was sitting up in her bedside chair this morning. She continues to have significant cough with a little sputum production. On chest exam she has loose large airway congestion. We will start Pulmozyme twice daily. She is already on Mucinex, Singulair, and Solu-Medrol. She has Tessalon also. Cold agglutinins are positive at 1:128. We have started Zithromax. She is also on Levaquin and Fortaz. Sputum Gram stain showed gram- positive cocci and gram-negative rods. Sputum culture is growing a gram- negative natan, but final ID and sensitivity is pending. Chest x-ray today shows the previously noted infiltrate is improving. 01/01/2017. Patient was seen today along with Baljeet Garcia RN. Sputum culture has now been finalized. Sputum grew E. coli. She is on Levaquin and Fortaz which both have excellent sensitivities to this organism. She is also on Zithromax secondary to positive cold agglutinins. Overall, the patient states that her breathing is improved. She continues to have a productive cough, but states sputum is white. She has remained afebrile. Legionella is negative. Chest x-ray stable. 01/02/17. The patient was seen today along with Baljeet Garcia RN. Her CXR today shows a new RLL infiltrate. In light of this. we will continue her inpatient stay and IV antibiotics. She states she doesn't feel well, but is improving. 01/05/2017. The patient was seen today along with Baljeet Garcia RN. Patient's chest x-ray is improving. Overall, she feels she is making improvements every day. Chest x-ray, while improved, continues to show residual infiltrates in both bases. Because of this, we will treat her with IV antibiotics 1 more day but plan for discharge tomorrow. There are no new cultures. Medications have been reviewed. We made no changes today. Labs been reviewed. No new labs were drawn today. Microbiology has been reviewed. Urine culture is negative. Sputum cultures grew E. coli. Blood cultures were negative. Exam (Progress Note) - Constitutional Vitals: Period Temp Pulse Resp BP Sys/Gonzales Pulse Ox Last 24 Hr 97.1 F-97.8 F 55-77 16-20 106-129/50-72 93-100 Exam: Chest with loose large airway congestion, no appreciable wheeze Heart no gallop Abdomen is obese, but nontender and nondistended; bowel sounds are positive 4 Lower extremities nothing to suggest acute deep venous thrombophlebitis Psychiatric oriented 3 Neurologic long-term motor function is intact Plan: Continue present treatment. If she continues to improve, we will plan to discharge her home tomorrow. This was discussed with patient her understanding and she is in agreement. Results - Labs CBC & BMP: 01/01/17 05:29 01/01/17 05:29
[2017-01-05] MEDS: methylPREDNISolone SOD SUC 40 MG/1 ML VIAL IV SCH ×2 (12:01→22:59)
[2017-01-05] MEDS: LEVOFLOXACIN INJ 500 MG in PREMIX 1 EACH IV SCH (12:01)
--- NOTE | 2017-01-05 13:40 | Physician Query Form ---
CLICK EDIT DOCUMENT TO SELECT QUERY ANSWER --> OK --> SIGN Antonia Nieto RN Clinical Leather Repairer W) [phone] (f) [phone] [email or web address] PROVIDERS: Make your selection(s) from the choices in EACH section by typing an "x" and enter comments in the comment section. Please use your independent medical judgment in providing your response. This request does not imply that any particular answer is desired or expected. CLINICAL INDICATORS: (Providers should not edit this section) Based on documentation of "acute left lower lung pneumonia". Sputum culture grew E-coli. Pt. treated with IV Fortaz and Levaquin. Community Acquired and Healthcare Acquired are both unspecified terms and require further specificity. Based on the above, could you please clarify further specificity regarding the type of pneumonia you are treating (even if specific organism may not be known) ? ( ) Aspiration pneumonia ( ) Gram negative pneumonia ( ) Gram positive pneumonia ( X) Bacterial pneumonia due to, please specify organism (if known): E. coli ( ) Pneumonia with Influenza ( ) Viral pneumonia ( ) Post procedural ( ) HIV associated pneumonia ( ) Radiation Pneumonitis ( ) Pneumonia due to, please specify: ( ) Clinically unable to determine ( ) Other, please specify: COMMENTS: PLEASE ALSO DOCUMENT RESPONSE IN PROGRESS NOTES AND/OR DISCHARGE SUMMARY Use of terms such as suspected, likely, or probable (associated with a specific diagnosis that is being evaluated, monitored, or treated as if it exists) are acceptable and can be restated in the discharge summary if not ruled out. MTDD
[2017-01-05] MEDS: BIMATOPROST 0.01% OPH SOLN 2.5 ML BOTTLE BOTH EYES SCH (20:36)
[2017-01-06] MEDS: DORNASE ALFA 2.5 MG/2.5 ML VIAL RESP TX SCH (07:26)
[2017-01-06] MEDS: ALBUTEROL/IPRATROPIUM 3 ML NEB RESP TX SCH ×2 (07:26→11:00)
[2017-01-06] MEDS: POTASSIUM CHLORIDE 20 MEQ TABLET PO SCH (10:14)
[2017-01-06] MEDS: MONTELUKAST 10 MG TABLET PO SCH (10:14)
[2017-01-06] MEDS: ASPIRIN CHEW 81 MG TABLET PO SCH (10:14)
[2017-01-06] MEDS: FUROSEMIDE 40 MG TABLET PO SCH (10:14)
[2017-01-06] MEDS: PANTOPRAZOLE 40 MG TABLET PO SCH (10:14)
[2017-01-06] MEDS: hydrALAZINE 25 MG TABLET PO SCH (10:15)
[2017-01-06] MEDS: BENZONATATE 100 MG CAPSULE PO SCH (10:15)
[2017-01-06] MEDS: CHOLECALCIFEROL 1,000 UNIT TABLET PO SCH (10:15)
[2017-01-06] MEDS: AZELASTINE NASAL 137 MCG/SPRAY 30 ML BOTTLE BOTH NARES SCH (10:16)
[2017-01-06] MEDS: BUDESONIDE/FORMOTEROL 160-4.5 INHALER 6 GM INH SCH (10:16)
[2017-01-06] MEDS: INCRUSE ELLIPTA INH SCH (10:20)
[2017-01-06] MEDS: AZITHROMYCIN INJ 500 MG in SODIUM CHLORIDE 0.9% 250 ML IV SCH (10:24)
--- NOTE | 2017-01-06 11:00 | Pulmonology Progress Note ---
Pulmonary - PN: Subj Interval history: Bradley Calabrese, [facility] acting as scribe for Dr. Santana Rodas This is a 86-year-old black female admitted from [facility] on 03/2017. She was admitted with acute left lower lung pneumonia. She was significantly sick and she had significant dyspnea on exertion. She had a cough productive of discolored sputum. At admission, our impressions were: #1: Acute left lower lung infiltrate compatible with pneumonia; sputum cultures and blood cultures are pending. 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 12/30/2016. Today the patient feels better her chest x-ray shows some partial resolution of the left lower lung infiltrate. She is still breathless with getting up and going to the bathroom. White blood cell count is 7100 with 78 segs and 18 lymphs. H&H is 10.3/31.5 and platelets are 277,000. Urinalysis shows no evidence of infection. Electrolytes are normal. Creatinine is 0.70 with a BUN of 13. Thyroid function tests are normal. Nitrated peptide is 25. Magnesium is 2.4. Sputum Gram stain showed gram-positive cocci and gram- negative rods. Blood cultures are negative so far 12/31/2016. The patient was sitting up in her bedside chair this morning. She continues to have significant cough with a little sputum production. On chest exam she has loose large airway congestion. We will start Pulmozyme twice daily. She is already on Mucinex, Singulair, and Solu-Medrol. She has Tessalon also. Cold agglutinins are positive at 1:128. We have started Zithromax. She is also on Levaquin and Fortaz. Sputum Gram stain showed gram- positive cocci and gram-negative rods. Sputum culture is growing a gram- negative natan, but final ID and sensitivity is pending. Chest x-ray today shows the previously noted infiltrate is improving. 01/01/2017. Patient was seen today along with Baljeet Garcia RN. Sputum culture has now been finalized. Sputum grew E. coli. She is on Levaquin and Fortaz which both have excellent sensitivities to this organism. She is also on Zithromax secondary to positive cold agglutinins. Overall, the patient states that her breathing is improved. She continues to have a productive cough, but states sputum is white. She has remained afebrile. Legionella is negative. Chest x-ray stable. 01/02/17. The patient was seen today along with Baljeet Garcia RN. Her CXR today shows a new RLL infiltrate. In light of this. we will continue her inpatient stay and IV antibiotics. She states she doesn't feel well, but is improving. 01/05/2017. The patient was seen today along with Baljeet Garcia RN. Patient's chest x-ray is improving. Overall, she feels she is making improvements every day. Chest x-ray, while improved, continues to show residual infiltrates in both bases. Because of this, we will treat her with IV antibiotics 1 more day but plan for discharge tomorrow. There are no new cultures. 01/06/2017. The patient was seen today along with Baljeet Garcia RN, and Albina Self RN. Patient states she is doing well today. She continues to cough, but this is markedly improved and should resolve over time. Her wheezes have markedly improved. Overall, she is stable and ready for discharge. Medications have been reviewed. Labs been reviewed. No new labs were drawn today. Microbiology has been reviewed. Urine culture is negative. Sputum cultures grew E. coli. Blood cultures were negative. Exam (Progress Note) - Constitutional Vitals: Period Temp Pulse Resp BP Sys/Gonzales Pulse Ox Last 24 Hr 97.8 F-97.9 F 56-98 18-20 105-138/49-65 93-99 Exam: Chest with mild loose large airway congestion, no appreciable wheeze Heart no gallop Abdomen is obese, but nontender and nondistended; bowel sounds are positive 4 Lower extremities nothing to suggest acute deep venous thrombophlebitis Psychiatric oriented 3 Neurologic long-term motor function is intact Plan: She has now met maximum hospital benefit and can be discharged home. Please see the discharge summary for more information. Results - Labs CBC & BMP: 01/01/17 05:29 01/01/17 05:29
--- NOTE | 2017-01-06 11:06 | Discharge Summary ---
Hospital Course - Hospital Course Hospital Course: Bradley Calabrese, [facility], acting as scribe for Dr. Santana Rodas Mrs. Garcia is an 86 year old female from [place], [place]. She was [facility] 12[facility]16 by Camila Moreno NP, for complaints of cough, wheeze, sore throat, severe shortness of breath with exertion, and frequent chills/sweating that had been acutely worsening for 7-10 days. She was previously treated with Prednisone and Ceftin for upper respiratory infection and sinusitis with instructions to return to the clinic if no improvement. She had completed these medications and her symptoms had not improved, but had become acutely worse. Therefore, she presented back to the clinic the day of admission for further evaluation. On exam she was found to have a temperature of 99.2 oral along with o2 sat down to 84% with exertion. She had been using medications as prescribed including Symbicort and Incruse inhalers, breathing treatments, Prednisone, and Singulair. She was very anxious and tearful in the office and acutely ill appearing. CXR was done which revealed findings of an acute left lower lobe infiltrate compatible with pneumonia. CBC showed anemia with a left shift. Due to the severity of her symptoms and findings on CXR and lab, failure of outpatient treatment, and her past medical history, the decision was made to admit to inpatient for further evaluation and treatment. She was admitted and started on IV antibiotics Fortaz and Levaquin. Sputum Gram stain showed gram-positive cocci and gram-negative rods. Sputum culture ultimately grew E. coli. Fortaz had an DEBBIE of less than 1 and Levaquin had an DEBBIE of less than 2. Other appropriate antibiotic choices will depend Cipro with an DEBBIE of less than 1, doripenem with an DEBBIE of less than 0.5, ertapenem with an DEBBIE of less than 1, imipenem with an DEBBIE of less than 1, and tetracycline with an DEBBIE of less than 4. Cold agglutinins were positive at 1: 128, so she was started on Zithromax. She has now completed 6 days of Zithromax. She will not require any more Zithromax at discharge. She will, however, continue Levaquin for another 10 days. Over time, the patient's infiltrate has resolved. She has had significant difficulty mobilizing her secretions, but this improved with the addition of Pulmozyme. Blood cultures grew no organisms. Urine culture grew no organisms. Legionella was negative. At discharge, white count is 9900 with 78.5% segs, 15.7% lymphs, 5.0% monos; H& H 10.0/31.5 with low to low normal indices and normal red blood cell distribution with; platelet count 344,000; creatinine 0.80, BUN 16, sodium 139, potassium 4.5, magnesium 2.4; BNP at admission was 25; TSH free T4 were normal at 0.611 and 1.35 respectively; urinalysis showed trace leukocytes with 5 WBCs per high-power field but bacteria. For more information regarding Mrs. Garcia is past medical history, social history, family history, past procedures, admit labs, admit x-ray and admit exam , please see the admission note dated 12/29/2016. Impression: #1: Acute left lower lung infiltrate secondary to E. coli. Note, cold agglutinins were also positive consistent with mycoplasma. Therefore, her pneumonia was also secondary to this. Resolved. 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 She has been scheduled to follow-up with Camila Moreno, nurse practitioner, in approximately 2 weeks with a chest x-ray and CBC. She could be seen sooner if needed. Specialty Discharge - Follow Up or Referrals Follow up with: Camila Moreno CFNP [Advanced Practice Nurse] - 2 Weeks (with CXR and CBC) Discharge Plan - Discharge Data Disposition: Disch To Home/Self Care Condition at Discharge: Stable - Discharge Medications New Montelukast Tab [Singulair Tab] 10 mg PO BID #60 tablet guaiFENesin ER TAB [Mucinex] 600 mg PO BID tablet Levofloxacin Tab [Levaquin Tab] 500 mg PO DAILY #10 tablet Continue Furosemide Tab [Lasix Tab] 40 mg PO DAILY Omeprazole [Prilosec] 40 mg PO DAILY Budesonide/Formoterol 80-4.5 [Symbicort 80-4.5] 2 puff INH BID hydrALAZINE TAB [Apresoline Tab] 25 mg PO BID Potassium Chloride Cap/Tab [K Dur] 20 meq PO DAILY Aspirin EC Tab 81 mg PO DAILY Bimatoprost 0.01% Oph Soln [Lumigan] 1 drop BOTH EYES BEDTIME predniSONE TAB [PredniSONE] 10 mg PO BID Cholecalciferol (Vitamin D3) [Vitamin D3] 5,000 units PO DAILY Azelastine Nasal 137 Mcg/[place] [Astelin Nasal [place]] 2 sprays BOTH NARES BID Umeclidinium [place] [Incruse Ellipta] 2 puff INH BID Changed Benzonatate [Tessalon] 200 mg PO TID #60 capsule Discontinued Montelukast Tab [Singulair Tab] 10 mg PO DAILY - Follow Up or Referral - Forms/Instructions Exam - Constitutional Vitals: Period Temp Pulse Resp BP Sys/Gonzales Pulse Ox Last 24 Hr 97.8 F-97.9 F 56-98 18-20 105-138/49-65 93-99 DS: Provider Date of admission: 12/29/16 11:13 Primary care physician: Santana Rodas MD Attending physician on admission: Santana Rodas MD Consults: 12/31/16 09:20 Consult to Case Mgmt/Social Srvs [CONS] Routine Reason for Case Mgmt/Social Srvs: Home Health Discharging clinician: INDY Tate
[2017-01-06 11:41] VITALS: BP 135/68
[2017-01-06] MEDS: methylPREDNISolone SOD SUC 40 MG/1 ML VIAL IV SCH (12:00)
[2017-01-06] MEDS: LEVOFLOXACIN INJ 500 MG in PREMIX 1 EACH IV SCH (13:54)
== END 2017-01-06 14:30 | disposition home health service (06) | DRG 190 ==
LOC: N.5E 11:13
PROVIDERS: ADMIT Internal Medicine Pulmonary Disease; ATTEND Internal Medicine Pulmonary Disease

== ENCOUNTER 2018-12-16 07:28 | Observation (INO) ==
[2018-12-16] MEDS ORDERED: SODIUM CHLORIDE 0.9% 1,000 ML IV STA (08:05)
[2018-12-16 08:22] LABS: Basophils % 0.4 % (0.0-0.8); Eosinophils # 0.1 10*3/uL (0.0-0.87); Eosinophils % 1.2 % (0.00-10.9); Hematocrit 37.4 VOL% (35.7-47.0); Hemoglobin 11.4 GM/DL (12.0-16.0); Immature Granulocytes % 0.6 %; Immature Granulocytes Absolute 0.06 #; Lymphocytes # 3.2 10*3/uL (1.4-4.0); Lymphocytes % 30.8 % (21.3-54.2); Mean Corpuscular HGB Conc 30.5 GM/DL (32-36); Mean Corpuscular Volume 87.2 FL (87-102); Monocytes % 8.3 % (1.7-12.7); Neutrophils % 58.7 % (38.7-73.9); Platelet Count 532 T/CUMM (130-400); Red Blood Count 4.29 MC/CUMM (3.8-5.5); Red Cell Distribution Width 15.6 % (9.3-17.3); White Blood Count 10.4 T/CUMM (4-12)
[2018-12-16 08:30] LABS: PT Patient Result 10.4 SECS
[2018-12-16 08:40] LABS: Apearance,Urine Slightly Hazy (Clear); Bilirubin,Urine Negative (Negative); Blood, Urine Negative (Negative); Calcium Oxalate Crystals,Urine Few /HPF (Few); Glucose,Urine (UA) Negative (Negative); Hyaline Casts,Urine 4 /LPF (0-3); Ketones,Urine Negative (Negative); Mucus,Urine Occasional /LPF (Occasional); Nitrite,Urine Negative (Negative); Protein,Urine Negative; Squamous Epithelial Cell,Urine Occasional /HPF (0-10); Urine Color Yellow (Yellow); Urine Specific Gravity 1.019 (1.001-1.035); WBC,Urine 3 /HPF (0-6)
[2018-12-16 08:50] LABS: Albumin 3.8 G/DL (3.4-5.0); Bilirubin,Total 0.4 MG/DL (0.2-1.0); Calcium 9.4 MG/DL (8.5-10.1); Osmolality,Calculated 280.3 MOS/KG (273-304); Total Protein 7.4 G/DL (6.4-8.3)
[2018-12-16] MEDS ORDERED: ONDANSETRON 4 MG/2 ML VIAL IV PRN (11:47)
[2018-12-16] MEDS ORDERED: ZALEPLON 5 MG CAPSULE PO PRN (11:47)
[2018-12-16] MEDS ORDERED: ACETAMINOPHEN 325 MG TABLET PO PRN (11:47)
[2018-12-16] MEDS ORDERED: PRAMOXINE/HYDROCORTISONE RECTAL FOAM 10 GM CAN RECTAL PRN (11:49)
[2018-12-16] MEDS ORDERED: ONDANSETRON ODT 4 MG TABLET PO PRN (11:49)
[2018-12-16] MEDS: ENOXAPARIN 40 MG/0.4 ML SYRINGE SUBCUT SCH (12:42)
[2018-12-16] MEDS: ALBUTEROL/IPRATROPIUM 3 ML NEB RESP TX SCH ×2 (14:20→23:44)
[2018-12-16] MEDS: LACTATED RINGERS 1,000 ML IV SCH ×2 (16:29→21:26)
[2018-12-16] MEDS: THEOPHYLLINE ER (24 HR) 400 MG TABLET PO SCH (17:07)
[2018-12-16] MEDS: ALBUTEROL 2 MG TABLET PO SCH ×2 (17:07→20:23)
[2018-12-16] MEDS: POTASSIUM CHLORIDE 20 MEQ TABLET PO SCH (20:23)
[2018-12-16] MEDS: MONTELUKAST 10 MG TABLET PO SCH (20:23)
[2018-12-16] MEDS: PANTOPRAZOLE 40 MG TABLET PO SCH (20:24)
[2018-12-16] MEDS ORDERED: hydrALAZINE 10 MG TABLET PO SCH (21:00)
[2018-12-17 05:15] LABS: Albumin 2.8 G/DL (3.4-5.0); Bilirubin,Total 0.6 MG/DL (0.2-1.0); Calcium 8.4 MG/DL (8.5-10.1); Osmolality,Calculated 285.8 MOS/KG (273-304); Risk Ratio 2.31; Thyroid Stimulating Hormone 0.78 uIU/ml (0.358-3.74); Total Protein 5.7 G/DL (6.4-8.3); VLDL CHOLESTEROL 13.8 MG/DL
[2018-12-17] MEDS: LACTATED RINGERS 1,000 ML IV SCH (05:30)
[2018-12-17] MEDS: ALBUTEROL/IPRATROPIUM 3 ML NEB RESP TX SCH (06:41)
[2018-12-17] MEDS ORDERED: LINACLOTIDE 145 MCG CAPSULE PO SCH (07:30)
[2018-12-17] MEDS ORDERED: CHOLECALCIFEROL 5,000 UNIT TABLET PO SCH (09:00)
[2018-12-17] MEDS ORDERED: hydrALAZINE 10 MG TABLET PO SCH (09:00)
[2018-12-17] MEDS ORDERED: ASPIRIN EC 81 MG TABLET PO SCH (09:00)
[2018-12-17] MEDS ORDERED: predniSONE 10 MG TABLET PO SCH (09:00)
[2018-12-17] MEDS ORDERED: BREO INH SCH (09:00)
[2018-12-17] MEDS ORDERED: MAGNESIUM CHLORIDE 64 MG TABLET PO SCH (09:00)
[2018-12-17] MEDS ORDERED: DOCUSATE SODIUM 100 MG CAPSULE PO SCH (09:00)
[2018-12-17] MEDS: ALBUTEROL 2 MG TABLET PO SCH (09:57)
[2018-12-17] MEDS: POTASSIUM CHLORIDE 20 MEQ TABLET PO SCH (09:57)
[2018-12-17] MEDS: MONTELUKAST 10 MG TABLET PO SCH (09:58)
[2018-12-17] MEDS: PANTOPRAZOLE 40 MG TABLET PO SCH (09:58)
[2018-12-17] MEDS: THEOPHYLLINE ER (24 HR) 400 MG TABLET PO SCH (09:59)
[2018-12-17] MEDS: ENOXAPARIN 40 MG/0.4 ML SYRINGE SUBCUT SCH (10:00)
[2018-12-17 12:38] VITALS: BP 149/72
== END 2018-12-17 12:58 | disposition home or self-care (01) ==
LOC: N.EDINP 07:28 → N.ED 07:28 → N.2E 13:21
PROVIDERS: ADMIT Family Medicine; ATTEND Family Medicine